=== PATIENT | male | born 1960 | race Caucasian/White ===

== ENCOUNTER 2017-10-18 10:21 | Day surgery (SDC) ==
[2017-10-18] MEDS ORDERED: LIDOCAINE 1% 20 ML MDV ID STA (11:10)
[2017-10-18] MEDS ORDERED: DIPRIVAN 20 ML VIAL IVP ONE (12:06)
[2017-10-18] MEDS ORDERED: VERSED ONE (12:06)
[2017-10-18 13:37] VITALS: BP 140/86; TEMP 97.8
--- NOTE | 2017-10-19 11:05 | OP ---
INDICATIONS FOR PROCEDURE: 57-year-old gentleman presents for colonoscopy exam. He has a history of adenomatous polyps with his last colonoscopy three years ago. MEDICATIONS: SEE ANESTHESIA NOTES. PROCEDURE: COLONOSCOPY. REPORT: The risks, benefits, alternatives and limitations were discussed in detail with the patient. Informed consent was obtained. After adequate sedation was achieved, a digital rectal exam revealed good tone, no masses. The colonoscope was introduced into the rectum and advanced under direct visual guidance to the cecum. The cecum was identified by the appendiceal orifice and IC valve. I then slowly withdrew the scope in a circumferential manner examining the mucosa quite carefully. I looked on the proximal and distal side of folds and flexures as best as possible. I was able to retroflex the scope in the right colon and the left colon to increase visualization. The colonic mucosa is unremarkable its entire length. On retroflex view of the anal canal there was a non engorged internal hemorrhoid. There was also a small anal skin tag. The prep was good. The withdrawal time was 6 minutes and 38 seconds. The patient tolerated the procedure well with stable vital signs and pulse oximetry throughout. IMPRESSION: 1. SMALL NON ENGORGED INTERNAL HEMORRHOID 2. SMALL ANAL SKIN TAG RECOMMENDATIONS: 1. High fiber diet. 2. Office visit as needed. 3. Colonoscopy examination again in 5 years, sooner if there are any signs or symptoms to indicate otherwise. CC: DR. HARRY BAILEY
== END 2017-10-19 13:15 | disposition home or self-care (01) ==
LOC: SURG 10:21
PROVIDERS: ATTEND Internal Medicine Gastroenterology
DX: Z86.010 Personal history of colon polyps (principal); K64.8 Other hemorrhoids; K64.4 Residual hemorrhoidal skin tags